=== PATIENT | male | born 1990 | race Caucasian/White ===

== ENCOUNTER 2021-01-05 13:29 | Emergency (ER) | payer OTHER, SELFPAY ==
[2021-01-05 14:10] VITALS: BP 152/90; PULSE 64; RESP 17; TEMP 36.8; O2SAT 99
[2021-01-05 15:19] VITALS: BP 123/87; PULSE 61; O2SAT 98
[2021-01-05 16:27] LABS: Basophils Absolute Auto 0.1 K/mm3 (0.0-0.1); Basophils Percent Auto 0.7 % (0.2-1.2); Eosinophils Absolute Auto 0.2 K/mm3 (0-0.3); Eosinophils Percent Auto 1.8 % (0-4.4); Hematocrit 43.9 % (42.0-52.0); Hemoglobin 14.3 g/dL (14.0-18.0); Immature Granulocyte Absolute 0.04 K/mm3 (0.00-0.031); Immature Granulocyte Percent A 0.4 % (0-0.5); Lymphocytes Absolute Auto 2.37 K/mm3 (0.9-3.2); Lymphocytes Percent Auto 22.5 % (18.3-44.2); Mean Corpuscular HGB Conc 32.6 g/dl (32-36); Mean Corpuscular Hemoglobin 27.7 pg (26-34); Mean Corpuscular Volume 85.1 fl (80-100); Mean Platelet Volume 10.5 fl (7.4-10.4); Monocytes Absolute Auto 0.6 K/mm3 (0.1-0.6); Monocytes Percent Auto 5.9 % (2.6-8.5); Neutrophils Absolute Auto 7.3 K/mm3 (1.3-6.7); Neutrophils Percent Auto 68.7 % (45.5-73.1); Platelet Count Result 290 k/mm3 (150-375); Red Blood Count 5.16 M/mm3 (4.6-6.20); Red Cell Distribution Width 13.2 % (11.5-14.5); White Blood Count 10.5 K/mm3 (4.5-10.0)
[2021-01-05 16:36] LABS: Alanine Aminotransferase 13 U/L (4-50); Albumin Level 4.4 g/dL (3.5-5.1); Alkaline Phosphatase 73 U/L (38-126); Anion Gap 8 mmol/L (8-16); Aspartate Amino Transferase 19 U/L (17-59); Bilirubin,Total 0.7 mg/dL (0.2-1.3); Blood Urea Nitrogen 10 mg/dL (9-20); Calcium 9.7 mg/dL (8.4-10.2); Carbon Dioxide 29 mmol/L (22-30); Chloride 103 mmol/L (98-107); Estimated CRCL calculation 95 ml/min; Estimated Glomerular Filt Rate > 60; Glucose 85 mg/dL (65-110); Sodium 140 mmol/L (137-145)
--- NOTE | 2021-01-05 16:57 | ED.GENADULT ---
HPI - General Adult General Chief complaint: Unspecified Stated complaint: bilateral hands numb Time Seen by Provider: 01/05/21 15:35 Source: patient and RN notes reviewed Mode of arrival: ambulatory Limitations: no limitations History of Present Illness HPI narrative: Patient is a 30-year-old male who presents noting for the last day he feels as though he has a sensory delay with touching things patient notes he has had similar occurrence in the past and it resolved patient notes that he is now again experiencing the symptoms denies any other neurologic complaints or deficits or any injury trauma or similar occurrence has not seen by primary care presents in no distress Related Data Allergies Allergy/AdvReac Type Severity Reaction Status Date / Time No Known Allergies Allergy Verified 01/05/21 14:13 Review of Systems Review of Systems: All systems reviewed & are unremarkable except as noted in HPI and below PMFSH Social History Social History (Updated 01/05/21 @ 16:59 by Woody Jauregui PA-C) Smoking status: Never smoker Exam Narrative: GENERAL: Well-appearing, well-nourished, and in no acute distress. HEAD: Normocephalic, atraumatic. EYES: PERRLA and EOMI. ENT: Nares clear, no rhinorrhea or epistaxis. Mucous membranes moist. NECK: Supple. No adenopathy or masses. No carotid bruits or JVD CHEST: Clear to auscultation. No respiratory distress. No wheezes rales or rhonchi HEART: Regular rate and rhythm. No murmur heard. Normal peripheral pulses.. EXTREMITIES: Normal range of motion. No edema. SKIN: Warm, dry, no rash. NEURO: No focal deficits. Alert and oriented x3. Cranial nerves II through XII grossly intact. Normal speech and gait. Motor and sensory intact and symmetrical in the extremities. Normal speech PSYCH: Normal mood and affect. Course Course Emergency Course: Patient in the room no distress hemodynamically stable felt appropriate for outpatient reevaluation will be discharged for planned follow-up with primary care and given strict reasons to return Vital Signs Vital signs: Vital Signs Temperature 98.3 F 01/05/21 14:10 Pulse Rate 64 01/05/21 14:10 Respiratory Rate 17 01/05/21 14:10 Blood Pressure 152/90 H 01/05/21 14:10 Pulse Oximetry 99 01/05/21 14:10 Temperature 98.3 F 01/05/21 14:10 Pulse Rate 61 01/05/21 15:19 Respiratory Rate 17 01/05/21 14:10 Blood Pressure 123/87 01/05/21 15:19 Pulse Oximetry 98 01/05/21 15:19 Medical Decision Making MDM Narrative Medical decision making narrative: Patient symptoms are atypical he has no headache or lightheadedness or dizziness. There are no focal neurological deficits on exam. Subarachnoid hemorrhage is felt to be unlikey at this time. There is no history of fever, and neck is supple without meningismus, making meningitis unlikely. No traumatic history or signs of trauma on exam. No risk factors for CVA, risk factors reviewed. NO ocular signs on exam and in history to suggest acute glaucoma. Patients symptoms are felt to be a reasonable candidate for outpatient evaluation Vital Signs Vital Signs: Vital Signs Temperature 98.3 F 01/05/21 14:10 Pulse Rate 64 01/05/21 14:10 Respiratory Rate 17 01/05/21 14:10 Blood Pressure 152/90 H 01/05/21 14:10 Pulse Oximetry 99 01/05/21 14:10 Temperature 98.3 F 01/05/21 14:10 Pulse Rate 61 01/05/21 15:19 Respiratory Rate 17 01/05/21 14:10 Blood Pressure 123/87 01/05/21 15:19 Pulse Oximetry 98 01/05/21 15:19 Lab Data Result diagrams: 01/05/21 16:18 01/05/21 16:18 Labs: Lab Results 01/05/21 01/05/21 Range/Units 16:18 16:18 WBC Pending RBC Pending Hgb Pending Hct Pending MCV Pending MCH Pending MCHC Pending RDW Pending Plt Count Pending MPV Pending Immature Gran % (Auto) Pending Neut % (Auto) Pending Lymph % (Auto) Pending Leon % (Auto) Pending
[2021-01-05 17:25] VITALS: BP 125/88; PULSE 84; RESP 14; O2SAT 94
== END 2021-01-05 17:27 | disposition home or self-care (01) ==
PROVIDERS: Emergency Medicine Emergency Medical Services; Emergency Provider Emergency Medicine
DX: R20.0 Anesthesia of skin (principal)
CPT/HCPCS: 36415; 80053; 83735; 85025; 99283